=== PATIENT | female | born 1945 ===

== ENCOUNTER 2020-11-02 18:07 | Emergency (ER) | payer OTHER ==
[~2020-11-02] VITALS: Ht 152.4 cm; Wt 79.8 kg
[2020-11-02] MEDS ORDERED: TENORMIN25 MG PO (18:26)
[2020-11-02] MEDS ORDERED: GLIMEPIRIDE2 M1 PO (18:26)
[2020-11-02] MEDS ORDERED: CARDIZEM120 MG PO (18:26)
[2020-11-02] MEDS ORDERED: CHILDREN'S ASPI81 MG PO (18:27)
[2020-11-02] MEDS ORDERED: LASIX20 MG PO (18:27)
[2020-11-02] MEDS ORDERED: DUI500 PO (20:34)
== END 2020-11-02 20:42 | disposition home or self-care (01) ==
LOC: ER 18:07
DX: L03.115 Cellulitis of right lower limb (principal)